=== PATIENT | female | born 1945 | race Caucasian/White ===

== ENCOUNTER 2016-12-26 10:01 | Outpatient (CLI) | payer OTHER ==
--- NOTE | 2016-12-26 12:19 | DIAGNOSTIC IMAGING REPORT ---
PROCEDURE: MG BILATERAL SCREENING W/CAD INDICATION: Screening. Family history breast carcinoma (great aunts). TECHNIQUE: Bilateral CC and MLO digital views. COMPARISON: Compared to 09/12/2012, 90 07/07, and 07/19/2010. FINDINGS: Computer-aided detection applied. Dense parenchymal pattern with a few dystrophic calcifications. No change. IMPRESSION: 1. Negative mammogram. RESULT CODE: 1- Negative. A. A negative report should not delay biopsy if a dominant or clinically suspicious mass is present. 10-15% of cancers are not identified by x-ray. B. A negative report may reinforce clinical impression. C. Adenosis and dense breasts may obscure an underlying neoplasm. D. False positive reports average 6-10%. E.. A yearly screening mammogram is recommended. A reminder letter will be scheduled.
== END 2016-12-26 23:00 ==
LOC: MAM SRH 10:01
DX: Z12.31 Encounter for screening mammogram for malignant neoplasm of breast (principal); Z80.3 Family history of malignant neoplasm of breast

== ENCOUNTER 2017-01-12 10:58 | Outpatient (CLI) | payer OTHER ==
--- NOTE | 2017-01-12 12:19 | DIAGNOSTIC IMAGING REPORT ---
PROCEDURE: US COMPLETE PELVIC W/TRANSVAG INDICATION: PELVIC PAIN TECHNIQUE: Transabdominal and endovaginal chamberlain scale and color Doppler sonographic images of the female pelvis were obtained. COMPARISON: None. FINDINGS: TRANSABDOMINAL SCANS: The uterus is of normal size 5.7 x 4 x 3.3 cm. Kidneys are normal. TRANSVAGINAL SCANS: The uterus is anteverted. There is a 2 1/2 cm calcified uterine fibroid. The endometrium was not well seen Ovaries were not identified IMPRESSION: 1. 2.5 cm calcified uterine fibroid.
== END 2017-01-12 23:00 ==
LOC: US SRH 10:58
DX: D25.9 Leiomyoma of uterus, unspecified (principal)